=== PATIENT | male | born 1980 | race Caucasian/White ===

== ENCOUNTER 2021-05-03 11:13 | Emergency (ER) | payer OTHER, BC ==
[2021-05-03] MEDS ORDERED: Propofol 200 MG/20 ML SDV IVPUSH ONE (11:42)
[2021-05-03] MEDS ORDERED: Morphine 4 MG/ML VIAL IVPUSH ONE (11:42)
[2021-05-03 13:23] VITALS: BP 135/81; PULSE 84
== END 2021-05-03 13:23 | disposition home or self-care (01) ==
LOC: MW.ED 11:13
DX: S43.004A Unspecified dislocation of right shoulder joint, initial encounter (principal); W18.40XA Slipping, tripping and stumbling without falling, unspecified, initial encounter
CPT/HCPCS: 23650; 73020; 73030; 96374; 99152; 99283; J2270; J2704